=== PATIENT | male | born 1990 | race Two or more races ===

== ENCOUNTER 2021-01-17 11:12 | Emergency (ER) | payer OTHER ==
[~2021-01-17] VITALS: Ht 177.8 cm; Wt 79.8 kg
[2021-01-17] MEDS ORDERED: KETO10TA2 PO (16:11)
== END 2021-01-17 16:22 | disposition home or self-care (01) ==
LOC: ER 11:12
DX: K42.9 Umbilical hernia without obstruction or gangrene (principal); R10.84 Generalized abdominal pain; K59.09 Other constipation